=== PATIENT | female | born 1965 | race Caucasian/White ===

== ENCOUNTER → 2019-07-03 16:36 | Outpatient (CLI) | payer OTHER, SELFPAY ==
--- NOTE | 2019-07-03 | DI.MG.S_ITS ---
BILATERAL DIGITAL SCREENING MAMMOGRAM 3D/2D WITH CAD: 07/03/2019 CLINICAL: Routine screening. Comparison is made to exams dated: 08/31/2017 mammogram - [facility], 01/07/2016 mammogram, and 04/20/2014 mammogram - [facility]. There are scattered fibroglandular elements in both breasts. Current study was also evaluated with a Computer Aided Detection (CAD) system. No significant masses, calcifications, or other findings are seen in either breast. There has been no significant interval change. IMPRESSION: NEGATIVE There is no mammographic evidence of malignancy. A 1 year screening mammogram is recommended. This exam was interpreted at Station ID: [id number]. NOTE: For mammograms, a report in lay terms will be sent to the patient. Approximately 15% of breast malignancies will not be visualized mammographically. In the management of a palpable breast mass, a negative mammogram must not discourage biopsy of a clinically suspicious lesion. Electronically Signed By: Jimmy river/[email or web address]:07/04/2019 08:02:35 letter sent: Normal Exam ACR BI-RADS Category 1: Negative 3341F
== END ==
PROVIDERS: Visit Provider Physician Assistant
DX: Z12.31 Encounter for screening mammogram for malignant neoplasm of breast (principal)
CPT/HCPCS: 77063; 77067

== ENCOUNTER → 2021-02-23 14:55 | Outpatient (CLI) | payer OTHER, SELFPAY ==
--- NOTE | 2021-02-23 14:58 | DI.MG.S_ITS ---
BILATERAL DIGITAL SCREENING MAMMOGRAM 3D/2D WITH CAD: 02/23/2021 CLINICAL: Routine screening. Comparison is made to exams dated: 07/03/2019 mammogram, 10/26/2017 mammogram - [facility], 08/31/2017 mammogram - [facility], and 01/07/2016 mammogram - [facility]. There are scattered fibroglandular elements in both breasts. Current study was also evaluated with a Computer Aided Detection (CAD) system. No significant masses, calcifications, or other findings are seen in either breast. There has been no significant interval change. IMPRESSION: NEGATIVE There is no mammographic evidence of malignancy. A 1 year screening mammogram is recommended. This exam was interpreted at Station ID: [id number]. NOTE: For mammograms, a report in lay terms will be sent to the patient. Approximately 15% of breast malignancies will not be visualized mammographically. In the management of a palpable breast mass, a negative mammogram must not discourage biopsy of a clinically suspicious lesion. Electronically Signed By: Jimmy river/lucila:02/23/2021 15:17:41 letter sent: Normal Exam ACR BI-RADS Category 1: Negative 3341F
== END ==
PROVIDERS: PCP Family Medicine; Referring Provider Family Medicine; Visit Provider Family Medicine
DX: Z12.31 Encounter for screening mammogram for malignant neoplasm of breast (principal)
CPT/HCPCS: 77063; 77067

== ENCOUNTER → 2021-07-18 16:36 | Outpatient (CLI) | payer OTHER, SELFPAY ==
[2021-07-18 18:01] LABS: COVID19 -Nasal RAPID Negative (Negative)
== END ==
PROVIDERS: PCP Family Medicine; Referring Provider Nurse Practitioner Family; Visit Provider Nurse Practitioner Family
DX: Z20.822 Contact with and (suspected) exposure to COVID-19 (principal)
CPT/HCPCS: 87635

== ENCOUNTER → 2021-07-20 15:05 | Outpatient (CLI) | payer OTHER, SELFPAY ==
--- NOTE | 2021-07-20 | DI.NM.S_ITS ---
PROCEDURE: NM EXERCISE TREADMILL NON NUC COMPARISON: None. INDICATIONS: Precordial pain FINDINGS: Resting ECG sinus rhythm. Craig protocol 9 minutes, 0 seconds. Maximum heart rate 163 bpm, 96% peak predicted. Maximum blood pressure 164/88. 10.1 METS. LINUS -25%. Stress ECG sinus tachycardia, no ST segment changes, no arrhythmia. IMPRESSION: 1. No evidence of exercise-induced ischemia or arrhythmia on ECG. 2. Fair exercise capacity. 3. Normal blood pressure response to exercise. Dictated by: Samia Eaton D.O. on 07/20/2021 at 16:50 Approved by: Samia Eaton M.D. on 07/20/2021 at 16:59
== END ==
PROVIDERS: PCP Family Medicine; Referring Provider Nurse Practitioner Family; Visit Provider Nurse Practitioner Family
DX: R07.2 Precordial pain (principal)
CPT/HCPCS: 93017

== ENCOUNTER → 2024-11-22 11:30 | Outpatient (CLI) | payer OTHER, SELFPAY ==
[2024-11-22 12:01] LABS: Cholesterol 271 mg/dL (140-199); HDL Cholesterol 55 mg/dL (40-60); LDL Cholesterol Calculated 187 mg/dL (<100); Triglycerides 147 mg/dL (35-150)
[2024-11-22 12:19] LABS: Hemoglobin A1C% w Est Avg Glu 5.2 % (4.0-6.0)
== END ==
PROVIDERS: PCP Family Medicine; Referring Provider Family Medicine; Visit Provider Family Medicine
DX: Z13.1 Encounter for screening for diabetes mellitus (principal); Z13.220 Encounter for screening for lipoid disorders
CPT/HCPCS: 36415; 80061; 83036

== ENCOUNTER → 2025-06-16 16:03 | Outpatient (CLI) | payer OTHER, SELFPAY ==
--- NOTE | 2025-06-16 16:07 | DI.RAD.S_ITS ---
PROCEDURE: ORTHO-XR FOOT 3V WB LEFT COMPARISON: None. 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 Second through 5th hammertoe deformities also seen. Joints: Mild degeneration 1st MTP and 2nd through 5th interphalangeal joints . Soft tissues: No soft tissue abnormality. IMPRESSION: Chronic findings Dictated by: Alvarado Garner M.D. on 06/17/2025 at 12:19 Approved by: Alvarado Garner M.D. on 06/17/2025 at 12:20
--- NOTE | 2025-06-16 16:07 | DI.RAD.S_ITS ---
PROCEDURE: ORTHO-XR FOOT 3V WB RIGHT INDICATIONS: BI FOOT PAIN TECHNIQUE: 3 weight-bearing views acquired of the foot. COMPARISON: None. FINDINGS: Bones: Moderate hallux valgus metatarsus abductus and pes planus noted. There are no focal osseous abnormalities Joints: Mild degeneration 1st MTP and 2nd through 5th interphalangeal joints . Soft tissues: No soft tissue abnormality. IMPRESSION: Chronic findings Dictated by: Alvarado Garner M.D. on 06/17/2025 at 12:18 Approved by: Alvarado Garner M.D. on 06/17/2025 at 12:19
== END ==
LOC: RAD 16:05
PROVIDERS: PCP Family Medicine; Referring Provider Podiatrist Foot & Ankle Surgery; Visit Provider Podiatrist Foot & Ankle Surgery
DX: M19.072 Primary osteoarthritis, left ankle and foot (principal); M19.071 Primary osteoarthritis, right ankle and foot; M20.12 Hallux valgus (acquired), left foot; M20.11 Hallux valgus (acquired), right foot; M21.42 Flat foot [pes planus] (acquired), left foot; M21.41 Flat foot [pes planus] (acquired), right foot; M20.42 Other hammer toe(s) (acquired), left foot; M79.671 Pain in right foot; M79.672 Pain in left foot
CPT/HCPCS: 73630

== ENCOUNTER → 2025-07-31 12:24 | Outpatient (CLI) | payer OTHER, SELFPAY ==
--- NOTE | 2025-07-31 12:26 | EKG_ITS ---
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
== END ==
PROVIDERS: PCP Family Medicine; Referring Provider Family Medicine; Visit Provider Podiatrist Foot & Ankle Surgery
DX: Z01.818 Encounter for other preprocedural examination (principal)
CPT/HCPCS: 93005